=== PATIENT | female | born 1960 | race Caucasian/White ===

== ENCOUNTER → 2020-03-07 | Outpatient (CLI) | payer OTHER | LOC: US 12:13 | DX: N63.32 Unspecified lump in axillary tail of the left breast (principal) | CPT/HCPCS: 76641-LT ==

== ENCOUNTER → 2020-04-22 | Outpatient (CLI) | payer OTHER | LOC: MAMO 03-29 08:00 | DX: Z12.31 Encounter for screening mammogram for malignant neoplasm of breast (principal); N60.01 Solitary cyst of right breast | CPT/HCPCS: 77063; 77067 ==